=== PATIENT | male | born 1975 | race Hispanic/Latino ===

== ENCOUNTER 2024-08-19 13:32 | Inpatient (IN) | payer MEDICARE ==
[~2024-08-19] VITALS: Ht 170.2 cm; Wt 57.6 kg
[~2024-08-19 13:32] MED LIST: CLARITIN10 MG PO; FLONASE ALLERG9.9 ML INH
[2024-08-19 13:40] VITALS: TEMP 97.9
[2024-08-19 14:25] LABS: BASOPHILS # (AUTO) 0.1 (0.0-0.1); EOSINOPHILS # (AUTO) 0.1 (0.0-0.4); EOSINOPHILS % 1.6 % (0.0-6.0); HEMATOCRIT 35.3 % (38.2-49.6); HEMOGLOBIN 11.4 g/dL (14.0-18.0); LYMPHOCYTES # (AUTO) 2.7 (1.0-3.2); MEAN CORPUSCULAR HEMOGLOBIN 31.5 pg (28-32); MEAN CORPUSCULAR HGB CONC 32.3 g/dL (31-35); MEAN CORPUSCULAR VOLUME 97.5 fL (81-99); MONOCYTES # (AUTO) 0.6 (0.2-0.8); MONOCYTES % 8.4 % (4.4-11.3); NEUTROPHILS # (AUTO) 3.5 (2.1-6.9); NEUTROPHILS % 49.7 % (38.7-80.0); PLATELET COUNT 134 x10e3/uL (140-360); RED BLOOD COUNT 3.62 x10e6/uL (4.3-5.7); RED CELL DISTRIBUTION WIDTH 14.4 % (11.7-14.4); WHITE BLOOD COUNT 6.94 x10e3/uL (4.8-10.8)
[2024-08-19 14:48] LABS: ALBUMIN 3.7 g/dL (3.5-5.0); ALBUMIN/GLOBULIN RATIO 0.7 (0.8-2.0); ANION GAP 23.3 mmol/L (8-16); BILIRUBIN,TOTAL 0.8 mg/dL (0.2-1.2); CALCIUM 11.3 mg/dL (8.4-10.2); CREATININE, SERUM 8.89 mg/dL (0.72-1.25); TOTAL PROTEIN 9.2 g/dL (6.5-8.1)
[2024-08-19 14:51] LABS: POTASSIUM 5.3 mmol/L (3.5-5.1)
[2024-08-19 14:53] LABS: TROPONIN I 0.003 ng/mL (0-0.300)
[2024-08-19 15:00] VITALS: PULSE 55; RESP 18
[2024-08-19 15:38] LABS: INR 1.2; PROTHROMBIN TIME 15.9 seconds (11.9-14.5)
[2024-08-19 17:19] VITALS: PULSE 74; RESP 20; O2SAT 98
[2024-08-19 17:48] LABS: EOSINOPHILS,BODY FLUID 1 %; LYMPHOCYTES,BODY FLUID 90 %; MONO/MACROPHG,BODY FLUID 1 %; NEUTROPHILS,BODY FLUID 2 %; OTHER CELLS,BODY FLUID 6 %; TOTAL CELLS COUNTED (DIFF) 100
[2024-08-19 17:50] LABS: BODY FLUID APPEARANCE CLOUDY; BODY FLUID COLOR RED; BODY FLUID TYPE PLEURAL; RBC,BODY FLUID 82000 cells/uL; WBC,BODY FLUID 1580 cells/uL
[2024-08-19 20:00] VITALS: BP 148/89; PULSE 61; RESP 20; TEMP 97.6; O2SAT 99
[2024-08-19] MEDS: INSULIN REGULAR, HUMAN 100 UNIT/1 ML SQ ONE (21:25)
[2024-08-19] MEDS: DEXTROSE 50% SYRINGE 50 ML IV STA ×2 (21:33→21:53)
[2024-08-19] MEDS: SODIUM BICARBONATE 8.4% INJ 50 ML SYR IV STA ×2 (21:33→21:53)
[2024-08-19] MEDS: SOD POLYSTYRENE SULFONATE SUSP 15 GM/60 ML BTL PO ONE ×2 (21:34→21:53)
[2024-08-19] MEDS: INSULIN REGULAR, HUMAN 100 UNIT/1 ML IV ONE (21:44)
[2024-08-19] MEDS: ALBUTEROL SULF 0.083% NEB SOLN 3 ML NEB NEB STA ×2 (21:47→21:53)
[2024-08-19 21:48] VITALS: PULSE 60; RESP 16; O2SAT 100
[2024-08-19 22:41] VITALS: BP 148/89; PULSE 60; RESP 16; TEMP 97.6; O2SAT 100
[2024-08-19] MEDS ORDERED: ALBUTEROL/IPRATROPIUM 3 ML NEB NEB PRN (23:45)
[2024-08-20] VITALS (8 sets, daily range): BP systolic 136–173; BP diastolic 63–98; PULSE 61–69; RESP 16–21; TEMP 97.6–99.1; O2SAT 97–100
[2024-08-20] MEDS ORDERED: HYDRALAZINE HCL 20 MG/ML VIAL IV PRN
[2024-08-20] MEDS ORDERED: BENZONATATE 100 MG CAP PO PRN
[2024-08-20] MEDS ORDERED: ACETAMINOPHEN 325 MG TAB PO PRN
[2024-08-20] MEDS: ALBUTEROL/IPRATROPIUM 3 ML NEB NEB SCH (01:00)
[2024-08-20] MEDS ORDERED: SODIUM CHLORIDE 0.9% 1000ML 2,000 ML IV PRN (06:00)
[2024-08-20 07:37] LABS: BASOPHILS # (AUTO) 0.1 (0.0-0.1); BASOPHILS % 1.3 % (0.0-1.0); EOSINOPHILS # (AUTO) 0.1 (0.0-0.4); EOSINOPHILS % 2.1 % (0.0-6.0); HEMATOCRIT 33.5 % (38.2-49.6); HEMOGLOBIN 11.1 g/dL (14.0-18.0); LYMPHOCYTES # (AUTO) 1.9 (1.0-3.2); LYMPHOCYTES % 31.1 % (18.0-39.1); MEAN CORPUSCULAR HEMOGLOBIN 32.4 pg (28-32); MEAN CORPUSCULAR HGB CONC 33.1 g/dL (31-35); MEAN CORPUSCULAR VOLUME 97.7 fL (81-99); MONOCYTES # (AUTO) 0.6 (0.2-0.8); MONOCYTES % 8.9 % (4.4-11.3); NEUTROPHILS # (AUTO) 3.5 (2.1-6.9); NEUTROPHILS % 56.3 % (38.7-80.0); PLATELET COUNT 143 x10e3/uL (140-360); RED BLOOD COUNT 3.43 x10e6/uL (4.3-5.7); RED CELL DISTRIBUTION WIDTH 14.1 % (11.7-14.4); WHITE BLOOD COUNT 6.17 x10e3/uL (4.8-10.8)
[2024-08-20 08:04] LABS: ANION GAP 20.3 mmol/L (8-16); CALCIUM 10.2 mg/dL (8.4-10.2); CREATININE, SERUM 10.37 mg/dL (0.72-1.25)
[2024-08-20 08:11] LABS: POTASSIUM 5.3 mmol/L (3.5-5.1)
[2024-08-20] MEDS: PANTOPRAZOLE SODIUM 20 MG TABLET.DR PO SCH (08:59)
[2024-08-20] MEDS: LORATADINE 10 MG TAB PO ONE (08:59)
[2024-08-20] MEDS: FLUTICASONE PROPIONATE NASAL SPRAY NS SCH (09:00)
[2024-08-20] MEDS ORDERED: ELIQUIS5 MG PO (14:06)
[2024-08-20] MEDS ORDERED: LOSARTAN POTAS100 MG PO (14:06)
[2024-08-20] MEDS ORDERED: CARVEDILOL12.5 MG PO (14:06)
[2024-08-20] MEDS ORDERED: SENSIPAR30 MG PO (14:06)
[2024-08-20] MEDS ORDERED: NIFEDIPINE ER90 MG PO (14:06)
[2024-08-20] MEDS: CARVEDILOL 12.5 MG TAB PO SCH (16:21)
[2024-08-20] MEDS: NIFEDIPINE CR 30 MG TAB PO SCH (16:22)
[2024-08-20] MEDS ORDERED: ASPIRIN CHEW81 MG PO (19:25)
[2024-08-20] MEDS: TRAMADOL HCL 50 MG TAB PO PRN (21:19)
[2024-08-21] VITALS (10 sets, daily range): BP systolic 124–152; BP diastolic 82–95; PULSE 57–72; RESP 16–21; TEMP 97.5–98.8; O2SAT 96–100
[2024-08-21 06:18] LABS: ALBUMIN/GLOBULIN RATIO 0.6 (0.8-2.0); ANION GAP 17.6 mmol/L (8-16); BILIRUBIN,TOTAL 0.7 mg/dL (0.2-1.2); CALCIUM 10.7 mg/dL (8.4-10.2); CREATININE, SERUM 7.93 mg/dL (0.72-1.25); POTASSIUM 4.6 mmol/L (3.5-5.1); TOTAL PROTEIN 7.8 g/dL (6.5-8.1)
[2024-08-21 06:22] LABS: TOTAL PROTEIN,BODY FLUID 5.3 g/dL
[2024-08-21] MEDS ORDERED: PROPOFOL IV EMULSION 10 MG/ML 20 ML VIAL ONE (10:38)
[2024-08-22] VITALS (11 sets, daily range): BP systolic 122–143; BP diastolic 77–90; PULSE 60–76; RESP 16–20; TEMP 97.7–98.4; O2SAT 97–100
[2024-08-22 05:49] LABS: HEPATITIS B CORE AB TOTAL Negative; HEPATITIS B SURFACE AB QUANT 83.4; HEPATITIS B SURFACE AG (P) Negative
[2024-08-22 06:15] LABS: ALBUMIN/GLOBULIN RATIO 0.7 (0.8-2.0); ANION GAP 20.7 mmol/L (8-16); BILIRUBIN,TOTAL 0.5 mg/dL (0.2-1.2); CALCIUM 10.4 mg/dL (8.4-10.2); CREATININE, SERUM 10.11 mg/dL (0.72-1.25); POTASSIUM 4.7 mmol/L (3.5-5.1); TOTAL PROTEIN 7.5 g/dL (6.5-8.1)
[2024-08-22] MEDS: LORATADINE 10 MG TAB PO SCH (09:24)
[2024-08-22 14:11] LABS: CALCIUM 10.8 mg/dL (8.7-10.2)
[2024-08-22] MEDS ORDERED: SODIUM CHLORIDE 0.9% 1000ML 2,000 ML IV PRN (14:45)
[2024-08-23] VITALS (10 sets, daily range): BP systolic 138–160; BP diastolic 85–95; PULSE 58–79; RESP 16–20; TEMP 97.6–98.3; O2SAT 96–100
[2024-08-24] VITALS (8 sets, daily range): BP systolic 134–145; BP diastolic 80–84; PULSE 56–74; RESP 16–22; TEMP 97.5–98.2; O2SAT 96–100
[2024-08-25] VITALS (11 sets, daily range): BP systolic 128–145; BP diastolic 80–92; PULSE 60–86; RESP 16–18; TEMP 97.3–98.2; O2SAT 97–100
[2024-08-25] MEDS: ONDANSETRON HCL INJ 2MG/ML 2ML 2 MG/ML VIAL IV PRN (15:35)
[2024-08-26] VITALS (10 sets, daily range): BP systolic 127–147; BP diastolic 79–90; PULSE 54–72; RESP 16–18; TEMP 97.6–98.9; O2SAT 97–100
[2024-08-26 10:38] LABS: BASOPHILS # (AUTO) 0.1 (0.0-0.1); BASOPHILS % 1.1 % (0.0-1.0); EOSINOPHILS # (AUTO) 0.2 (0.0-0.4); EOSINOPHILS % 3.6 % (0.0-6.0); HEMATOCRIT 32.2 % (38.2-49.6); HEMOGLOBIN 10.4 g/dL (14.0-18.0); LYMPHOCYTES # (AUTO) 1.9 (1.0-3.2); MEAN CORPUSCULAR HEMOGLOBIN 31.5 pg (28-32); MEAN CORPUSCULAR HGB CONC 32.3 g/dL (31-35); MEAN CORPUSCULAR VOLUME 97.6 fL (81-99); MONOCYTES # (AUTO) 0.5 (0.2-0.8); MONOCYTES % 9.3 % (4.4-11.3); NEUTROPHILS # (AUTO) 2.8 (2.1-6.9); NEUTROPHILS % 50.8 % (38.7-80.0); PLATELET COUNT 144 x10e3/uL (140-360); RED CELL DISTRIBUTION WIDTH 14.2 % (11.7-14.4); WHITE BLOOD COUNT 5.49 x10e3/uL (4.8-10.8)
[2024-08-26 11:01] LABS: ANION GAP 20.2 mmol/L (8-16); CALCIUM 10.7 mg/dL (8.4-10.2); CREATININE, SERUM 8.73 mg/dL (0.72-1.25); POTASSIUM 4.2 mmol/L (3.5-5.1)
[2024-08-26] MEDS ORDERED: LIDOCAINE HCL 2% LOCAL INJ 5 ML SDV VIAL INJ ONE (12:31)
[2024-08-26] MEDS ORDERED: FENTANYL CITRATE/PF 100MCG/2 ML INJ ONE (12:31)
[2024-08-26] MEDS ORDERED: PROPOFOL IV EMULSION 10 MG/ML 20 ML VIAL ONE (12:31)
[2024-08-26] MEDS ORDERED: ONDANSETRON HCL INJ 2MG/ML 2ML 2 MG/ML VIAL ONE (12:31)
[2024-08-26] MEDS ORDERED: ROCURONIUM BROMIDE 1 ML IV ONE (12:31)
[2024-08-26] MEDS ORDERED: MIDAZOLAM HCL 2 MG/2 ML VIAL ONE (13:38)
[2024-08-26] MEDS ORDERED: KETAMINE 50MG/5ML SYR ONE (13:38)
[2024-08-26] MEDS ORDERED: HYDROMORPHONE 1MG/1ML INJ IV PRN (14:30)
[2024-08-26] MEDS ORDERED: ACETAMINOPHEN 1000 MG/100 ML IV PRN (14:30)
[2024-08-26] MEDS: HYDROMORPHONE 1MG/1ML INJ ONE (14:45)
[2024-08-26] MEDS: HYDROMORPHONE 2MG/ML IV PRN (15:47)
[2024-08-26] MEDS: HYDROCODONE/APAP 7.5MG-325MG 1 EA TAB PO PRN (21:26)
[2024-08-27] VITALS (11 sets, daily range): BP systolic 98–134; BP diastolic 66–88; PULSE 56–90; RESP 16–19; TEMP 97.1–98.2; O2SAT 95–100
[2024-08-27 05:45] LABS: BASOPHILS # (AUTO) 0.1 (0.0-0.1); EOSINOPHILS # (AUTO) 0.2 (0.0-0.4); HEMATOCRIT 32.7 % (38.2-49.6); HEMOGLOBIN 10.6 g/dL (14.0-18.0); LYMPHOCYTES # (AUTO) 1.9 (1.0-3.2); LYMPHOCYTES % 32.6 % (18.0-39.1); MEAN CORPUSCULAR HEMOGLOBIN 31.6 pg (28-32); MEAN CORPUSCULAR HGB CONC 32.4 g/dL (31-35); MEAN CORPUSCULAR VOLUME 97.6 fL (81-99); MONOCYTES # (AUTO) 0.5 (0.2-0.8); MONOCYTES % 9.1 % (4.4-11.3); NEUTROPHILS # (AUTO) 3.2 (2.1-6.9); PLATELET COUNT 149 x10e3/uL (140-360); RED BLOOD COUNT 3.35 x10e6/uL (4.3-5.7); RED CELL DISTRIBUTION WIDTH 14.3 % (11.7-14.4); WHITE BLOOD COUNT 5.96 x10e3/uL (4.8-10.8)
[2024-08-27 06:08] LABS: ANION GAP 22.1 mmol/L (8-16); CALCIUM 10.5 mg/dL (8.4-10.2); CREATININE, SERUM 10.83 mg/dL (0.72-1.25); POTASSIUM 5.1 mmol/L (3.5-5.1)
[2024-08-28] VITALS (12 sets, daily range): BP systolic 117–134; BP diastolic 62–87; PULSE 60–74; RESP 16–22; TEMP 97.5–97.9; O2SAT 93–100
[2024-08-28] MEDS: CINACALCET 30 MG TAB PO SCH (09:04)
[2024-08-28] MEDS: ONDANSETRON HCL INJ 2MG/ML 2ML 2 MG/ML VIAL IV PRN (20:44)
[2024-08-28] MEDS: Morphine 2mg Syringe 2 MG/ML SYR IV PRN (20:45)
[2024-08-29] VITALS (12 sets, daily range): BP systolic 113–138; BP diastolic 73–91; PULSE 62–74; RESP 16–20; TEMP 97.4–98.1; O2SAT 95–100
[2024-08-29 06:17] LABS: ALBUMIN 2.7 g/dL (3.5-5.0); ALBUMIN/GLOBULIN RATIO 0.6 (0.8-2.0); ANION GAP 22.3 mmol/L (8-16); BILIRUBIN,TOTAL 0.5 mg/dL (0.2-1.2); CALCIUM 9.6 mg/dL (8.4-10.2); CREATININE, SERUM 10.8 mg/dL (0.72-1.25); POTASSIUM 4.3 mmol/L (3.5-5.1); TOTAL PROTEIN 7.5 g/dL (6.5-8.1)
[2024-08-30] VITALS (8 sets, daily range): BP systolic 114–151; BP diastolic 82–99; PULSE 68–81; RESP 18–22; TEMP 97.6–98.5; O2SAT 97–100
[2024-08-31] VITALS (11 sets, daily range): BP systolic 115–141; BP diastolic 84–90; PULSE 70–78; RESP 17–20; TEMP 97.6–98.1; O2SAT 97–100
[2024-08-31 06:11] LABS: BASOPHILS # (AUTO) 0.1 (0.0-0.1); BASOPHILS % 0.9 % (0.0-1.0); EOSINOPHILS # (AUTO) 0.3 (0.0-0.4); HEMATOCRIT 34.3 % (38.2-49.6); HEMOGLOBIN 11.4 g/dL (14.0-18.0); LYMPHOCYTES # (AUTO) 2.2 (1.0-3.2); LYMPHOCYTES % 33.4 % (18.0-39.1); MEAN CORPUSCULAR HEMOGLOBIN 31.8 pg (28-32); MEAN CORPUSCULAR HGB CONC 33.2 g/dL (31-35); MEAN CORPUSCULAR VOLUME 95.8 fL (81-99); MONOCYTES # (AUTO) 0.7 (0.2-0.8); MONOCYTES % 9.9 % (4.4-11.3); NEUTROPHILS # (AUTO) 3.4 (2.1-6.9); NEUTROPHILS % 51.6 % (38.7-80.0); PLATELET COUNT 158 x10e3/uL (140-360); RED BLOOD COUNT 3.58 x10e6/uL (4.3-5.7); WHITE BLOOD COUNT 6.58 x10e3/uL (4.8-10.8)
[2024-08-31 06:40] LABS: ANION GAP 21.2 mmol/L (8-16); CALCIUM 8.8 mg/dL (8.4-10.2); CREATININE, SERUM 9.56 mg/dL (0.72-1.25); POTASSIUM 4.2 mmol/L (3.5-5.1)
[2024-09-01] VITALS (8 sets, daily range): BP systolic 106–137; BP diastolic 79–85; PULSE 67–82; RESP 17–18; TEMP 97.5–98.4; O2SAT 97–100
[2024-09-01] MEDS: ONDANSETRON HCL 4 MG ORAL DISINTEGRATING TAB PO PRN (15:46)
[2024-09-01] MEDS ORDERED: ALBUMIN 25% 12.5GM 0.25 GM/ML BTL IV PRN (18:15)
== END 2024-09-01 22:35 | disposition home or self-care (01) | DRG 186 ==
LOC: ER 14:20 → ERHOLD 15:12 → MED/SURG2 16:46
PROVIDERS: ADMIT Internal Medicine; ATTEND Internal Medicine
PROC: 0W9B3ZZ Drainage of Left Pleural Cavity, Percutaneous Approach (ICD-10-PCS; principal; 2024-08-19)
PROC: 5A1D70Z Performance of Urinary Filtration, Intermittent, Less than 6 Hours Per Day (ICD-10-PCS; 2024-08-20)
PROC: 0DB78ZX Excision of Stomach, Pylorus, Via Natural or Artificial Opening Endoscopic, Diagnostic (ICD-10-PCS; 2024-08-21)
PROC: 5A1D70Z Performance of Urinary Filtration, Intermittent, Less than 6 Hours Per Day (ICD-10-PCS; 2024-08-22)
PROC: 5A1D70Z Performance of Urinary Filtration, Intermittent, Less than 6 Hours Per Day (ICD-10-PCS; 2024-08-25)
PROC: 0W9B30Z Drainage of Left Pleural Cavity with Drainage Device, Percutaneous Approach (ICD-10-PCS; 2024-08-26)
PROC: 5A1D70Z Performance of Urinary Filtration, Intermittent, Less than 6 Hours Per Day (ICD-10-PCS; 2024-08-29)
PROC: 5A1D70Z Performance of Urinary Filtration, Intermittent, Less than 6 Hours Per Day (ICD-10-PCS; 2024-09-01)
DX: J90 Pleural effusion, not elsewhere classified (principal); J96.00 Acute respiratory failure, unspecified whether with hypoxia or hypercapnia; N18.6 End stage renal disease; I12.0 Hypertensive chronic kidney disease with stage 5 chronic kidney disease or end stage renal disease; J98.19 Other pulmonary collapse; Z94.0 Kidney transplant status; N25.81 Secondary hyperparathyroidism of renal origin; J98.11 Atelectasis; Z68.1 Body mass index [BMI] 19.9 or less, adult; I85.00 Esophageal varices without bleeding; J93.9 Pneumothorax, unspecified; T82.868A Thrombosis due to vascular prosthetic devices, implants and grafts, initial encounter; Z95.820 Peripheral vascular angioplasty status with implants and grafts; Z99.2 Dependence on renal dialysis; E87.5 Hyperkalemia; E83.52 Hypercalcemia; R59.0 Localized enlarged lymph nodes; D64.9 Anemia, unspecified; R91.1 Solitary pulmonary nodule; K21.00 Gastro-esophageal reflux disease with esophagitis, without bleeding; K44.9 Diaphragmatic hernia without obstruction or gangrene; K29.50 Unspecified chronic gastritis without bleeding; Z71.3 Dietary counseling and surveillance; Z87.01 Personal history of pneumonia (recurrent); Z79.899 Other long term (current) drug therapy; Z79.82 Long term (current) use of aspirin; Z79.01 Long term (current) use of anticoagulants
CPT/HCPCS: 32555; 36415; 43239; 71045; 71046; 71250; 74470; 80048; 80053; 82948; 83615; 83880; 83970; 84157; 84478; 84484; 85025; 85610; 86704; 86706; 87070; 87205; 87340; 88112; 88305; 89051; 93005; 93306; 94640; 94799; 99252; 99283; J1171; J2003; J2250; J2270; J2405; J2543; J7030; J7799; Q0162

== ENCOUNTER → 2024-11-03 | Outpatient (REF) | payer MEDICARE ==
[~2024-11-03] MED LIST changes: +ASPIRIN CHEW81 MG PO; +CARVEDILOL12.5 MG PO; +ELIQUIS5 MG PO; +LOSARTAN POTAS100 MG PO; +NIFEDIPINE ER90 MG PO; +SENSIPAR30 MG PO
== END ==
LOC: CT 15:49
PROVIDERS: ATTEND Internal Medicine Critical Care Medicine
DX: Z09 Encounter for follow-up examination after completed treatment for conditions other than malignant neoplasm (principal); J90 Pleural effusion, not elsewhere classified
CPT/HCPCS: 71250